=== PATIENT | female | born 1980 | race Caucasian/White ===

== ENCOUNTER 2016-02-15 04:22 | Inpatient (IN) | payer BC, SELFPAY ==
[~2016-02-15] VITALS: Ht 157.5 cm; Wt 68.0 kg
[2016-02-15] VITALS (23 sets, daily range): BP systolic 104–164; BP diastolic 58–103
[~2016-02-15 04:22] MED LIST: /MOM400 PO; ACET50TA PO; ANUS2.5C2 TOP; COLA50CA3 PO; IBUP80TA PO; PREN1TAB11 PO; PRENTAB74 PO
[2016-02-15] MEDS ORDERED: FENTANYL 2MCG/ML ROPIVACAINE 0.2% NACL 250 ML CADD As Ordered ONE (04:53)
[2016-02-15 04:57] LABS: MEAN CORPUSCULAR HGB CONC 33.3 g/dl (32.0-36.5); RED CELL DISTRIBUTION WIDTH 15.3 % (11.5-14.5); WHITE BLOOD COUNT 12.1 K/mm3 (4.0-10.0)
[2016-02-15] MEDS ORDERED: LR 1,000 ML IV SCH (04:57)
[2016-02-15] MEDS ORDERED: LACTATED RINGER'S 1000 ML IV STA (04:57)
[2016-02-15] MEDS ORDERED: NALOXONE INJ 0.4 MG/1 ML VIAL (J2310) IV PRN (05:15)
[2016-02-15] MEDS ORDERED: LACTATED RINGER'S 1000 ML IV PRN (05:15)
[2016-02-15] MEDS ORDERED: FENTANYL/ROPIVACAINE/NACL CADD 250 ML EPIDURAL SCH (05:15)
[2016-02-15] MEDS ORDERED: REFRIGERATOR IV KEYS XX PRN (05:15)
[2016-02-15] MEDS ORDERED: EPIDURAL COMMENT XX SCH (05:15)
[2016-02-15] MEDS ORDERED: ONDANSETRON 4MG/2ML VIAL (J2405) IV PRN (05:15)
[2016-02-15] MEDS ORDERED: EPIDURAL/PCA KEYS XX PRN (05:15)
[2016-02-15] MEDS ORDERED: diphenhydrAMINE INJ 50MG/ML VIAL (J1200) IV PRN (05:15)
[2016-02-15] MEDS ORDERED: ePHEDrine SULFATE 25 MG/5 ML(5MG/ML) SYRINGE IV PRN (05:15)
[2016-02-15] MEDS ORDERED: OXYTOCIN 30 UNITS IN 0.9% NaCl 500ML IV BAG (J2590) As Ordered ONE (07:38)
[2016-02-15] MEDS ORDERED: DOCUSATE SODIUM 100 MG CAP PO PRN (08:00)
[2016-02-15] MEDS ORDERED: OXYTOCIN DRIP 30 UNITS in APPROPRIATE DILUENT 1 EA IV SCH (08:00)
[2016-02-15] MEDS ORDERED: MOM 30ML SUSPENSION UDC PO PRN (08:00)
[2016-02-15] MEDS ORDERED: IBUPROFEN 800 MG TAB PO PRN (08:00)
[2016-02-15] MEDS ORDERED: ACETAMINOPHEN 500 MG TAB PO PRN (08:00)
[2016-02-15] MEDS ORDERED: MEASLES,MUMPS,RUBELLA VACCINE INJ (MMR-II) (90707) SC SCH (08:00)
[2016-02-15] MEDS ORDERED: DIBUCAINE 1% OINTMENT 30GM TOP PRN (08:00)
[2016-02-15] MEDS ORDERED: RHOGAM 300 MCG (1500 IU) INJ (J2790) IM SCH (08:00)
[2016-02-15] MEDS ORDERED: METHYLERGONOVINE MALEATE 0.2 MG TAB PO PRN (08:00)
[2016-02-15] MEDS ORDERED: ANUSOL HC CREAM 30GM TOP PRN (08:00)
[2016-02-15] MEDS: PRENATAL VITAMIN TAB PO SCH (09:00)
[2016-02-16 06:05] VITALS: BP 120/67
[2016-02-16] MEDS: PRENATAL VITAMIN TAB PO SCH (08:36)
[2016-02-16] MEDS ORDERED: ACET50TA PO (08:52)
[2016-02-16] MEDS ORDERED: IBUP-1114 PO (08:52)
--- NOTE | 2016-02-16 09:38 | HPE ---
DATE OF ADMISSION: 02/15/2016 35-year-old 2, para 1, estimated date of delivery 02/18/2016, here at 39 weeks 4 days with reports of uterine contractions since midnight, denies bleeding, loss of fluid, fetus is active. Last normal menstrual period 05/14/2015 for GODFREY 02/18/2016. Sonogram at 11 weeks confirmed the date of 02/15/2016. Anatomy scan within normal limits. Episode of gestational hypertension 38 weeks that resolved. OBSTETRICAL HISTORY: 2012 normal spontaneous vaginal 40 weeks, viable male 8 pounds 9. No known drug allergies. MEDICAL-SURGICAL: Varicosities. FAMILY HISTORY: Hypertension and heart disease and varicosities. SOCIAL HISTORY: . Father of the baby present and supportive. Denies tobacco, alcohol, drugs or abuse. OBJECTIVE: Prepregnancy weight 120, total weight gain 36 pounds. A+, antibody negative, rubella immune, VDRL, hepatitis B, hepatitis C, human immunodeficiency virus (HIV), gonorrhea, Chlamydia all negative. Verify within normal limits. 1-hour glucose 142. Three-hour within normal limits at 92, 173, 203 and 61. Group B strep was negative. Vital signs are stable. She is very uncomfortable. Heart rate is regular. Breathing with contractions. Abdomen is soft, gravid, longitudinal lie. Uterine contractions 2 to 4 minutes apart, moderate times 45 to 60 seconds. heart 130, moderate variability with accelerations. Cervix is 5 to 6 cm, 100% zero station and a bulging bag. ASSESSMENT: Multip term active labor category one tracing. PLAN: Admit the patient desires epidural.
--- NOTE | 2016-02-16 10:10 | DN ---
DATE: 02/15/2016 Comfortable with epidural. Spontaneous rupture of membranes, clear fluid, 0618 hours. Fully dilated 0618 hours, labored down, viable male delivered DANIELLA through tight nuchal cord, compound with right anterior arm at 0741 hours. Spontaneous respirations. Transitioned on maternal abdomen. Cord doubly clamped and cut once pulsations ceased. scores 9 and 9. Placenta Medel and intact with three-vessel cord at 0745 hours. Fundus firmed with massage and IV Pitocin bolus. Small outlet abrasion reapproximated with two stitches of #3-0 Rapide. Estimated blood loss 200 mL. Infant weight pending. Sponge, sharp and instrument count correct. Mom and baby doing well.
== END 2016-02-16 17:00 | disposition home or self-care (01) | DRG 560 ==
LOC: M LDO 04:22 → M LDI 04:38 → M OBS 10:28
PROVIDERS: ADMIT Advanced Practice Midwife; ATTEND Advanced Practice Midwife
PROC: 10E0XZZ Delivery of Products of Conception, External Approach (ICD-10-PCS; principal; 2016-02-15)
DX: O32.6XX0 Maternal care for compound presentation, not applicable or unspecified (principal); O13.4 Gestational [pregnancy-induced] hypertension without significant proteinuria, complicating childbirth; Z37.0 Single live birth; Z3A.39 39 weeks gestation of pregnancy; O69.89X0 Labor and delivery complicated by other cord complications, not applicable or unspecified

== ENCOUNTER → 2016-07-13 | Outpatient (REF) | payer BC ==
[~2016-07-13] MED LIST changes: +IBUP-1114 PO
== END ==
LOC: M SFHCPLAZ 14:30
PROVIDERS: ATTEND Dermatology
DX: D22.9 Melanocytic nevi, unspecified (principal)

== ENCOUNTER → 2018-01-19 | Outpatient (REF) | payer BC | LOC: M SFHCPLAZ 11:40 | DX: L81.4 Other melanin hyperpigmentation (principal) | CPT/HCPCS: 88305 ==

== ENCOUNTER → 2019-11-09 | Outpatient (REF) | payer BC ==
[~2019-11-09] MED LIST changes: -/MOM400 PO; -ACET50TA PO; +MAPA500T17 PO; +MAPA500T2 PO; +MILK10SU PO
== END ==
LOC: M PLALAB 15:58
PROVIDERS: ATTEND Obstetrics & Gynecology
DX: R23.2 Flushing (principal)

== ENCOUNTER → 2019-11-14 | Outpatient (REF) | payer BC ==
[2019-11-14 13:25] LABS: FOLLICLE STIMULATING HORMONE 5.7 mIU/mL; FREE T4 1.16 NG/DL (0.76-1.46); LUTEINIZING HORMONE 7.9 mIU/mL; PROLACTIN 3.5 NG/ML; THYROID STIMULATING HORMONE 1.04 uIU/ML (0.358-3.740)
== END ==
LOC: M PLALAB 10:45
PROVIDERS: ATTEND Obstetrics & Gynecology
DX: R23.2 Flushing (principal)

== ENCOUNTER → 2019-12-06 | Outpatient (CLI) | payer BC ==
--- NOTE | 2019-12-06 16:36 | REPMRS ---
Patient History The patient states she had a clinical breast exam in November 2019. Patient had first child at age 32. No known family history of cancer. 3D TOMOSYNTHESIS WAS PERFORMED. [facility] lifetime risk for breast cancer is 15.1%. [place] breast density d. Digital Woman Screen Mammo: December 06, 2019 - Exam #: [id number] Bilateral CC and MLO view(s) were taken. Technologist: Taylor Young, Technologist No prior studies available for comparison. FINDINGS: The breast tissue is extremely dense which could obscure a lesion on mammography. There is a large amount of residual fibroglandular tissue which is fairly symmetric. There is no dominant mass, areas of architectural distortion, or clustered microcalcification typical of malignancy. Assessment: BI-RADS/ACR category 1 mammogram. Negative Mammogram. Recommendation Routine screening mammogram in 1 year (for women over age 40). This mammogram was interpreted with the aid of an FDA-approved computer-aided dectection system. Electronically Signed By: aDrek Apodaca MD 12/06/19 [id number]
== END ==
LOC: M WHC 15:18
PROVIDERS: ATTEND Obstetrics & Gynecology
DX: Z12.31 Encounter for screening mammogram for malignant neoplasm of breast (principal)

== ENCOUNTER → 2020-08-22 | Outpatient (CLI) | payer SELFPAY | LOC: M LABSMTC 10:03 | PROVIDERS: ATTEND Pediatrics | DX: Z20.822 Contact with and (suspected) exposure to COVID-19 (principal) ==

== ENCOUNTER → 2021-09-14 | Outpatient (CLI) | payer BC | LOC: M WHC 09:05 | PROVIDERS: ATTEND Obstetrics & Gynecology | DX: Z12.31 Encounter for screening mammogram for malignant neoplasm of breast (principal) ==

== ENCOUNTER → 2023-04-07 | Outpatient (CLI) | payer BC | LOC: M WHC 09:04 | PROVIDERS: ATTEND Registered Nurse | DX: Z12.31 Encounter for screening mammogram for malignant neoplasm of breast (principal); R92.343 Mammographic extreme density, bilateral breasts ==

== ENCOUNTER → 2023-04-08 | Outpatient (CLI) | payer BC ==
[2023-04-08 10:22] LABS: BASO % 0.7 % (0.0-1.0); EOS # 0.1 10^3/uL (0.0-0.5); EOS % 1.6 % (0.0-3.0); LYMPH # 1.4 10^3/uL (1.5-5.0); LYMPH % 24.8 % (24.0-44.0); MEAN CORPUSCULAR HGB CONC 33.3 g/dl (32.0-36.5); MEAN CORPUSCULAR VOLUME 90.1 fl (80.0-96.0); MONO # 0.6 10^3/uL (0.0-0.8); NEUTROPHILS # 3.4 10^3/uL (1.5-8.5); NEUTROPHILS % 62.7 % (36.0-66.0); PLATELET COUNT, AUTOMATED 277 10^3/uL (150-450); RED BLOOD COUNT 4.33 10^6/uL (4.00-5.40); WHITE BLOOD COUNT 5.5 10^3/uL (4.0-10.0)
[2023-04-08 10:52] LABS: ALBUMIN 4.1 G/DL (3.2-5.2); ALKALINE PHOSPHATASE 63 U/L (46-116); ALT/SGPT 17 U/L (7.0-40); AST/SGOT 15 U/L (<34); BILIRUBIN,TOTAL 0.5 MG/DL (0.3-1.2); BLOOD UREA NITROGEN 12 MG/DL (9-23); CALCIUM LEVEL 9.7 MG/DL (8.5-10.1); CARBON DIOXIDE LEVEL 29 MMOL/L (20-31); CHLORIDE LEVEL 104 MMOL/L (98-107); CHOLESTEROL LEVEL 172 MG/DL (<200); CHOLESTEROL RISK RATIO 2.21 (<5); CREATININE FOR GFR 0.66 MG/DL (0.55-1.30); GLOMERULAR FILTRATION RATE > 60.0 (>58); GLUCOSE, FASTING 93 MG/DL (60-100); HDL CHOLESTEROL 77.7 MG/DL (>40); LDL CHOLESTEROL 86.1 MG/DL (<100); NON-HDL-C 94.3 MG/DL; POTASSIUM SERUM 4.3 MMOL/L (3.5-5.1); SODIUM LEVEL 137 MMOL/L (136-145); TRIGLYCERIDES LEVEL 41 MG/DL (<150)
[2023-04-08 10:53] LABS: FREE T4 1.22 NG/DL (0.89-1.76)
== END ==
LOC: M LAB 09:08
PROVIDERS: ATTEND Registered Nurse
DX: Z00.00 Encounter for general adult medical examination without abnormal findings (principal)

== ENCOUNTER → 2024-06-20 | Outpatient (CLI) | payer BC | LOC: M WHC 09:47 | PROVIDERS: ATTEND Registered Nurse | DX: Z12.31 Encounter for screening mammogram for malignant neoplasm of breast (principal) ==